=== PATIENT | male | born 1950 | race African-American/Black ===

== ENCOUNTER 2016-10-25 09:24 | Emergency (ER) | payer OTHER, MEDICARE ==
[2016-10-25 10:21] LABS: Bilirubin Negative (Negative); Blood, Urine Large (Negative); Clarity Turbid (Clear); Glucose, Urine (Dipstick) Negative (Negative); Leukocyte Large (Negative); Nitrite Negative (Negative); Protein, Urine (Dipstick) 30 mg/dL (Neg-Trace); Specific Gravity, Urine 1.015 (1.005-1.030); pH, Urine 5.5 (5.0-9.0)
[2016-10-25 10:30] LABS: Bacteria/HPF 4+ HPF (None Seen); RBC/HPF GREATER THAN 50-TNTC HPF (0-3)
--- NOTE | 2016-10-25 10:44 | ERRECORD ---
[facility] EMERGENCY RECORD HPI UTI (09:48 LLDO) CHIEF COMPLAINT: Patient presents for evaluation of urinary tract infection signs or symptoms:, dysuria, frequency, Patient presents for evaluation of and urgency x 24 hours. no d/c. never had these sx before. HISTORIAN: History provided by patient. LOCATION: Symptoms are generalized. QUALITY: Pain is dull in nature, described as BURNING. SEVERITY: Maximum severity of symptoms moderate, Currently symptoms are moderate. TIME COURSE: Sudden onset of symptoms, Symptoms are worsening, are intermittent, only with urination. ASSOCIATED WITH: No associated symptoms, some mild bilateral low back pain. no abdominal pain. EXACERBATED BY: Patient's condition exacerbated by urination. RELIEVED BY: Patient's condition relieved by nothing. ROS CONSTITUTIONAL: Negative constitutional review of systems. (09:50 LLDO) EYES: Negative eye review of systems, Historian denies eye pain, denies eye redness, denies eye discharge. (09:52 LLDO) ENT: Negative ears, nose, throat review of systems, Historian denies otalgia, denies rhinorrhea, denies sinus pain, denies sore throat. (09:52 LLDO) GENITOURINARY MALE: Historian reports dysuria, reports urinary frequency. IN HPI. (09:50 LLDO) MUSCULOSKELETAL: Negative musculoskeletal review of systems, Historian denies arthralgias, denies fall, denies injury, denies myalgias. (09:52 LLDO) NEUROLOGIC: Negative neurologic review of systems, Historian denies confusion, denies focal weakness, denies mental status changes, denies sensory changes. (09:52 LLDO) ALLERGIC/IMMUNOLOGIC: Normal allergy/immunologic system review, Historian denies eczema, denies environmental allergies, denies food allergies. (09:52 LLDO) PSYCHIATRIC: Negative psychiatric review of systems, Historian denies alcohol abuse, denies anxiety, denies depression, denies drug abuse, denies hallucinations. (09:52 LLDO) NOTES: All systems reviewed, negative except as described above. (09:50 LLDO) PAST MEDICAL HISTORY MEDICAL HISTORY: Notes: VERIFIED 10-25-16, Flu vaccine not up to date, Tetanus immunization up to date, Pneumococcal vaccine not up to date, Flu vaccine not up to date, Tetanus immunization up to date, Pneumococcal vaccine not up to date, Past medical history includes history of hypertension, which has been &a-1R&a+25V*p+0X*q8146V*c202B*c15G*c2P*p-0X&a-25V&a+1R Name: Jerry Blanco : 1950 M66 MedRec: [id number] AcctNum: [id number] Prepared: Patricia Oct 25, 2016 11:00 by Interface Page 1 of 4 pMD [facility] EMERGENCY RECORD treated, Past medical history includes history of hypertension, which has been treated. 12-20-15. (09:35 JPER) MALE SURGICAL HISTORY: Patient has no surgical history, Patient has no surgical history, Patient has no surgical history. 12-20-15. (09:35 JPER) PSYCHIATRIC HISTORY: Notes: DENIES, Notes: DENIES, No previous psychiatric history. (09:35 JPER) SOCIAL HISTORY: Patient drinks every day, less than 5 drinks per day, Patient denies drug use, Patient is a former tobacco user, Patient has no smoking history, Patient drinks every day, less than 5 drinks per day, Patient denies drug use, Patient currently uses tobacco, smokes cigarettes, daily, Patient has smoked for 30 years, Patient smokes 1/2 packs per day, Lives at home, with family, Social History includes SAYS PT SMOKES 2 PPD, Patient currently uses tobacco, Patient smokes cigarettes, Patient smokes 1/2 packs per day, Patient has smoked for 30 years, Patient drinks every day, less than 5 drinks per day, Alcohol history notes: BEER, Patient denies drug use. (09:35 JPER) NOTES: Nursing records reviewed, Agree with nursing records, Medication list reviewed. (09:52 LLDO) KNOWN ALLERGIES No Known Allergies CURRENT MEDICATIONS (09:36 JPER) Diovan: CAPSULE : Strength - 160 mg : ORAL Patient Dose: once a day. Aspir-81: TABLET, DELAYED RELEASE (ENTERIC COATED) : Strength - 81 mg : ORAL Patient Dose: Unknown. VITAL SIGNS (09:32 JPER) VITAL SIGNS: BP: 145/79, Pulse: 100, Resp: 20, Temp: 99.4 (Oral), O2 sat: 96 on Room Air, Time: 10/25/2016 09:32. PHYSICAL EXAM CONSTITUTIONAL: Vital signs reviewed, Patient afebrile, Pulse normal, Blood pressure, BP ELEVATED SLIGHTLY, Respiratory rate normal, Patient appears, uncomfortable, Patient appears in pain, in moderate pain distress, Patient alert and oriented to person, place and time. (09:51 LLDO) HEAD: Head exam normal, Head exam included findings of head atraumatic, normocephalic. (09:52 LLDO) EYES: Eye exam normal, Eye exam included findings of eyelids normal to inspection, Pupils equally round and reactive to light, Extraocular muscles intact. (09:52 LLDO) ENT: ENT exam normal, Ear exam normal, Nose exam normal. (09:52 &a-1R&a+25V*p+0X*g3388S*c202B*c15G*c2P*p-0X&a-25V&a+1R Name: Jerry Blanco : 1950 M66 MedRec: [id number] AcctNum: [id number] Prepared: Patricia Oct 25, 2016 11:00 by Interface Page 2 of 4 pMD [facility] EMERGENCY RECORD LLDO) NECK: Neck exam normal, Neck exam included findings of normal range of motion, Trachea midline, no meningeal signs, no tenderness. (09:52 LLDO) BACK: Costovertebral angle tenderness, bilaterally, but very mild pain, even with firm palpation. (09:51 LLDO) UPPER EXTREMITY: Upper extremity exam normal, Upper extremity exam included findings of inspection normal, Range of motion normal. (09:52 LLDO) LOWER EXTREMITY: Lower extremity exam normal, Lower extremity exam included findings of inspection normal, Range of motion normal. (09:52 LLDO) NEURO: Neuro exam normal, Neuro exam findings include patient oriented to person, place and time, Speech normal, Chiara coma scale 15. (09:52 LLDO) SKIN: Skin exam normal, Skin exam included findings of skin warm, dry, and normal in color, no rash. (09:52 LLDO) PSYCHIATRIC: Psychiatric exam normal, Psychiatric exam included findings of patient oriented to person place and time, Normal affect, Judgment normal. (09:52 LLDO) MEDICATION ADMINISTRATION SUMMARY Drug Name: Cipro tablet, Dose Ordered: 500 mg, Route: Oral, Status: Given, Time: 10:47 10/25/2016, Drug Name: Pyridium, Dose Ordered: 200 mg, Route: Oral, Status: Given, Time: 10:47 10/25/2016, Detailed record available in Medication Service section. PROBLEM LIST No recorded problems DIAGNOSIS (10:33 LLDO) FINAL: PRIMARY: UTI SITE NOT SPECIFIED. PRESCRIPTION (10:33 LLDO) Cipro tablet: TABLET : 500 mg : ORAL : Quantity: 1 Unit: tab(s) Route: ORAL Schedule: 2 times a day Dispense: 20 May substitute. Refills: No Refills . NOTES: No Refills. Pyridium: TABLET : 100 mg : ORAL : Quantity: 1 Unit: tab(s) Route: ORAL Schedule: every 8 hours PRN Dispense: 15 May substitute. Refills: No Refills . NOTES: ^s=No Refills No Refills. DISPOSITION PATIENT: Disposition Type: Discharge, Disposition: *Discharge Home. (10:33 LLDO) &a-1R&a+25V*p+0X*x3464Y*c202B*c15G*c2P*p-0X&a-25V&a+1R Name: Jerry Blanco : 1950 M66 MedRec: [id number] AcctNum: [id number] Prepared: Patricia Oct 25, 2016 11:00 by Interface Page 3 of 4 pMD [facility] EMERGENCY RECORD Patient left the department. (10:53 FABIÁN) Flores: FABIÁN=YAMILEX Torres, Nichelle VALENTINE=MD Bronson, Duncan &a-1R&a+25V*p+0X*a1736W*c202B*c15G*c2P*p-0X&a-25V&a+1R Name: Jerry Blanco : 1950 M66 MedRec: [id number] AcctNum: [id number] Prepared: Patricia Oct 25, 2016 11:00 by Interface Page 4 of 4 pMD [facility]
[2016-10-25] MEDS ORDERED: Ciprofloxacin 500 MG TAB ONE (10:48)
[2016-10-25] MEDS ORDERED: Phenazopyridine HCl 97.5 MG TABLET ONE (10:48)
--- NOTE | 2016-10-25 10:49 | PICIS ---
[facility] EMERGENCY RECORD TRIAGE (09:35 JPER) PATIENT: NAME: Jerry Blanco, AGE: 66, GENDER: male, : Jose 1950, TIME OF GREET: Sun Oct 25, 2016 09:25, PREFERRED LANGUAGE: Scottish, RACE: Black or , ETHNICITY: Not or , FALL RISK: NO, ECODE BILLING MAP: [facility], SSN: [id number], Zip Code: [address], KG WEIGHT: 95.25, PHONE: , , , PERSON ID: [id number], PCP: DO Ervin Hillary. (09:35 JPER) COMPLAINT: BURNING WHILE URINATING. (09:35 JPER) ADMISSION: URGENCY: 4 Non Urgent, ADMISSION SOURCE: Home, TRANSPORT: Walk-in, BED: ED -02. (09:35 JPER) ASSESSMENT: Assessment: PT C/O FREQUENT URINATION ONSET 1830 LAST NIGHT. (09:35 JPER) IMMUNIZATIONS: Flu vaccine up to date, Tetanus not up to date, Pneumococcal vaccine up to date. (09:35 JPER) SIRS SCORING: Heart Rate 55-109 (0), Temp range 96.8-101.1 (0), respiratory rate 12-24 (0), Mental Status altered: no (0). (09:35 JPER) TRIAGE SCREENING: Patient denies suicidal ideation, Patient denies presence of domestic violence. (09:35 JPER) PROVIDERS: TRIAGE NURSE: Nichelle Torres RN. (09:35 JPER) VITAL SIGNS: BP 145/79, Pulse 100, Resp 20, Temp 99.4, (Oral), O2 Sat 96, on Room Air, Time 10/25/2016 09:32. (09:32 JPER) PREVIOUS VISIT ALLERGIES: No Known Allergies. (09:35 JPER) KNOWN ALLERGIES No Known Allergies CURRENT MEDICATIONS (09:36 JPER) Diovan: CAPSULE : Strength - 160 mg : ORAL Patient Dose: once a day. Aspir-81: TABLET, DELAYED RELEASE (ENTERIC COATED) : Strength - 81 mg : ORAL Patient Dose: Unknown. VITAL SIGNS (09:32 JPER) VITAL SIGNS: BP: 145/79, Pulse: 100, Resp: 20, Temp: 99.4 (Oral), O2 sat: 96 on Room Air, Time: 10/25/2016 09:32. NURSING ASSESSMENT: GENITOURINARY (09:38 FABIÁN) CONSTITUTIONAL: Patient arrives ambulatory, Gait steady, History obtained from patient, Patient appears comfortable, Patient cooperative, Patient alert, Oriented to person, place and time, Skin warm, Skin dry, Skin normal in color, Mucous membranes pink, Mucous membranes moist, Patient is well-groomed, Patient complains of DYSURIA. PAIN MALE: burning pain, to the shaft of penis, to the suprapubic region, WITH &a-1R&a+25V*p+0X*i8021L*c202B*c15G*c2P*p-0X&a-25V&a+1R Name: Jerry Blanco : 1950 M66 MedRec: [id number] AcctNum: [id number] Prepared: Patricia Oct 25, 2016 11:07 by Interface Page 1 of 5 pMD [facility] EMERGENCY RECORD URINATION, Pain exacerbated by nothing, Nothing has been tried to alleviate the pain. GENITOURINARY MALE: Notes: DEFERRED; UA REQUESTED. ABDOMEN: Abdomen soft. NOTES: Emotional support needed and given, Patient tolerated procedure well. ORDER DETAILS Order Name: Urinalysis w/ Rflx Microscopic, Status: Active, Time: 09:52 10/25/2016, User: FABIÁN, - Ordered for: MD Dobson Lloyd, - Entered by: YAMILEX Torres Jana - Patricia Oct 25, 2016 09:52, - Quantity: 1. MEDICATION ADMINISTRATION SUMMARY Drug Name: Cipro tablet, Dose Ordered: 500 mg, Route: Oral, Status: Given, Time: 10:47 10/25/2016, Drug Name: Pyridium, Dose Ordered: 200 mg, Route: Oral, Status: Given, Time: 10:47 10/25/2016, Detailed record available in Medication Service section. MEDICATION SERVICE (10:47 LLDO) Cipro tablet: Order: Cipro tablet (ciprofloxacin HCl) - Dose: 500 mg : Oral Schedule: Now Ordered by: Duncan Dobson MD Entered by: MD Patricia Pate Oct 25, 2016 10:35 Documented as given by: YAMILEX Guevara Oct 25, 2016 10:47 Patient, Medication, Dose, Route and Time verified prior to administration. Amount given: 500MG, Site: Medication administered P.O., Administered by RUPESH KAMINSKI. Pyridium: Order: Pyridium (phenazopyridine HCl) - Dose: 200 mg : Oral Schedule: Now Ordered by: Duncan Dobson MD Entered by: MD Patricia Pate Oct 25, 2016 10:36 Documented as given by: YAMILEX Guevara Oct 25, 2016 10:47 Patient, Medication, Dose, Route and Time verified prior to administration. Amount given: 200MG, Site: Medication administered P.O., Correct patient, time, route, dose and medication confirmed prior to administration, Patient advised of actions and side-effects prior to administration, Allergies confirmed and medications reviewed prior to administration, Administered by RUPESH KAMINSKI. HPI UTI (09:48 LLDO) CHIEF COMPLAINT: Patient presents for evaluation of urinary &a-1R&a+25V*p+0X*u4853S*c202B*c15G*c2P*p-0X&a-25V&a+1R Name: Jerry Blanco : 1950 M66 MedRec: [id number] AcctNum: [id number] Prepared: Patricia Oct 25, 2016 11:07 by Interface Page 2 of 5 pMD [facility] EMERGENCY RECORD tract infection signs or symptoms:, dysuria, frequency, Patient presents for evaluation of and urgency x 24 hours. no d/c. never had these sx before. HISTORIAN: History provided by patient. LOCATION: Symptoms are generalized. QUALITY: Pain is dull in nature, described as BURNING. SEVERITY: Maximum severity of symptoms moderate, Currently symptoms are moderate. TIME COURSE: Sudden onset of symptoms, Symptoms are worsening, are intermittent, only with urination. ASSOCIATED WITH: No associated symptoms, some mild bilateral low back pain. no abdominal pain. EXACERBATED BY: Patient's condition exacerbated by urination. RELIEVED BY: Patient's condition relieved by nothing. ROS CONSTITUTIONAL: Negative constitutional review of systems. (09:50 LLDO) EYES: Negative eye review of systems, Historian denies eye pain, denies eye redness, denies eye discharge. (09:52 LLDO) ENT: Negative ears, nose, throat review of systems, Historian denies otalgia, denies rhinorrhea, denies sinus pain, denies sore throat. (09:52 LLDO) GENITOURINARY MALE: Historian reports dysuria, reports urinary frequency. IN HPI. (09:50 LLDO) MUSCULOSKELETAL: Negative musculoskeletal review of systems, Historian denies arthralgias, denies fall, denies injury, denies myalgias. (09:52 LLDO) NEUROLOGIC: Negative neurologic review of systems, Historian denies confusion, denies focal weakness, denies mental status changes, denies sensory changes. (09:52 LLDO) ALLERGIC/IMMUNOLOGIC: Normal allergy/immunologic system review, Historian denies eczema, denies environmental allergies, denies food allergies. (09:52 LLDO) PSYCHIATRIC: Negative psychiatric review of systems, Historian denies alcohol abuse, denies anxiety, denies depression, denies drug abuse, denies hallucinations. (09:52 LLDO) NOTES: All systems reviewed, negative except as described above. (09:50 LLDO) PAST MEDICAL HISTORY MEDICAL HISTORY: Notes: VERIFIED 10-25-16, Flu vaccine not up to date, Tetanus immunization up to date, Pneumococcal vaccine not up to date, Flu vaccine not up to date, Tetanus immunization up to date, Pneumococcal vaccine not up to date, Past medical history includes history of hypertension, which has been treated, Past medical history includes history of hypertension, which has been treated. 12-20-15. (09:35 JPER) &a-1R&a+25V*p+0X*h5470K*c202B*c15G*c2P*p-0X&a-25V&a+1R Name: Jerry Blanco : 1950 M66 MedRec: [id number] AcctNum: [id number] Prepared: Patricia Oct 25, 2016 11:07 by Interface Page 3 of 5 pMD [facility] EMERGENCY RECORD MALE SURGICAL HISTORY: Patient has no surgical history, Patient has no surgical history, Patient has no surgical history. 12-20-15. (09:35 JPER) PSYCHIATRIC HISTORY: Notes: DENIES, Notes: DENIES, No previous psychiatric history. (09:35 JPER) SOCIAL HISTORY: Patient drinks every day, less than 5 drinks per day, Patient denies drug use, Patient is a former tobacco user, Patient has no smoking history, Patient drinks every day, less than 5 drinks per day, Patient denies drug use, Patient currently uses tobacco, smokes cigarettes, daily, Patient has smoked for 30 years, Patient smokes 1/2 packs per day, Lives at home, with family, Social History includes SAYS PT SMOKES 2 PPD, Patient currently uses tobacco, Patient smokes cigarettes, Patient smokes 1/2 packs per day, Patient has smoked for 30 years, Patient drinks every day, less than 5 drinks per day, Alcohol history notes: BEER, Patient denies drug use. (09:35 JPER) NOTES: Nursing records reviewed, Agree with nursing records, Medication list reviewed. (09:52 LLDO) PHYSICAL EXAM CONSTITUTIONAL: Vital signs reviewed, Patient afebrile, Pulse normal, Blood pressure, BP ELEVATED SLIGHTLY, Respiratory rate normal, Patient appears, uncomfortable, Patient appears in pain, in moderate pain distress, Patient alert and oriented to person, place and time. (09:51 LLDO) HEAD: Head exam normal, Head exam included findings of head atraumatic, normocephalic. (09:52 LLDO) EYES: Eye exam normal, Eye exam included findings of eyelids normal to inspection, Pupils equally round and reactive to light, Extraocular muscles intact. (09:52 LLDO) ENT: ENT exam normal, Ear exam normal, Nose exam normal. (09:52 LLDO) NECK: Neck exam normal, Neck exam included findings of normal range of motion, Trachea midline, no meningeal signs, no tenderness. (09:52 LLDO) BACK: Costovertebral angle tenderness, bilaterally, but very mild pain, even with firm palpation. (09:51 LLDO) UPPER EXTREMITY: Upper extremity exam normal, Upper extremity exam included findings of inspection normal, Range of motion normal. (09:52 LLDO) LOWER EXTREMITY: Lower extremity exam normal, Lower extremity exam included findings of inspection normal, Range of motion normal. (09:52 LLDO) NEURO: Neuro exam normal, Neuro exam findings include patient oriented to person, place and time, Speech normal, [place] coma scale 15. (09:52 LLDO) SKIN: Skin exam normal, Skin exam included findings of skin warm, &a-1R&a+25V*p+0X*v7683X*c202B*c15G*c2P*p-0X&a-25V&a+1R Name: Jerry Blanco : 1950 M66 MedRec: [id number] AcctNum: [id number] Prepared: Patricia Oct 25, 2016 11:07 by Interface Page 4 of 5 pMD [facility] EMERGENCY RECORD dry, and normal in color, no rash. (09:52 LLDO) PSYCHIATRIC: Psychiatric exam normal, Psychiatric exam included findings of patient oriented to person place and time, Normal affect, Judgment normal. (09:52 LLDO) EVENTS TRANSFER: Triage to Emergency Main ED -02. (Patricia Oct 25, 2016 09:35 JPER) Emergency Main ED -02 to -H01. (10:49 AWAT) Removed from Emergency Main ED -H01. (10:53 JPER) PROBLEM LIST No recorded problems DIAGNOSIS (10:33 LLDO) FINAL: PRIMARY: UTI SITE NOT SPECIFIED. DISPOSITION PATIENT: Disposition Type: Discharge, Disposition: *Discharge Home. (10:33 LLDO) Patient left the department. (10:53 JPER) INSTRUCTION (10:35 LLDO) DISCHARGE: UTI CYSTITIS MALE ADULT. FOLLOWUP: DO Ervin Hillary, [facility], [address] [place] [address], , Follow up with Primary Care Physician as needed. SPECIAL: Follow-up with your PCP. PRESCRIPTION (10:33 LLDO) Cipro tablet: TABLET : 500 mg : ORAL : Quantity: 1 Unit: tab(s) Route: ORAL Schedule: 2 times a day Dispense: 20 May substitute. Refills: No Refills . NOTES: No Refills. Pyridium: TABLET : 100 mg : ORAL : Quantity: 1 Unit: tab(s) Route: ORAL Schedule: every 8 hours PRN Dispense: 15 May substitute. Refills: No Refills . NOTES: ^s=No Refills No Refills. ADMIN (10:37 LLDO) DIGITAL SIGNATURE: MD Dobson Lloyd. Flores: AWAHelen=YAMILEX Blankenship, Gelacio LOCKWOOD=YAMILEX Torres, Nichelle MEME=MD Bronson, Duncan &a-1R&a+25V*p+0X*q9410J*c202B*c15G*c2P*p-0X&a-25V&a+1R Name: Jerry Blanco : 1950 M66 MedRec: [id number] AcctNum: [id number] Prepared: Patricia Oct 25, 2016 11:07 by Interface Page 5 of 5 pMD [facility] MEDICATION RECONCILIATION You were seen in the Emergency Department on: WedOct 25, 2016 KNOWN ALLERGIES No Known Allergies MEDICATIONS GIVEN WHILE IN THE EMERGENCY DEPARTMENT Cipro tablet (ciprofloxacin HCl) - Dose: 500 milligram(s) : Oral Pyridium (phenazopyridine HCl) - Dose: 200 milligram(s) : Oral HOME MEDICATIONS CONTINUE PRESCRIBED Aspir-81 : TABLET, DELAYED RELEASE (ENTERIC COATED) : Strength - 81 mg : ORAL Continue as prescribed Patient had been taking: Dose unknown Diovan : CAPSULE : Strength - 160 mg : ORAL Continue as prescribed Patient had been taking: once a day. Notes from the emergency department Reviewed with patient PRESCRIPTIONS (2) Printed (2) Cipro tablet : TABLET : 500 mg : ORAL Quantity: 1, Unit: tab(s), Route: ORAL, Schedule: 2 times a day, Dispense: 20 &a-1R&a+25V*p+0X*t1349W*c202B*c15G*c2P*p-0X&a-25V&a+1R Name: Jerry Blanco : 1950 M66 MedRec: [id number] AcctNum: [id number] Prepared: Patricia Oct 25, 2016 11:07 by Interface pMD [place]
== END 2016-10-25 10:55 | disposition home or self-care (01) ==
LOC: MADERS 09:24
DX: N39.0 Urinary tract infection, site not specified (principal); I10 Essential (primary) hypertension; F17.210 Nicotine dependence, cigarettes, uncomplicated
CPT/HCPCS: 81003; 81015; 87077; 87086; 87186; 99283

== ENCOUNTER 2017-06-22 11:16 | Outpatient (CLI) | payer OTHER, MEDICARE ==
[2017-06-22 11:56] LABS: #Basophils 0.1 thou/uL (0.0-0.2); #Lymphocytes 2.3 thou/uL (1.20-3.40); #Monocytes 0.7 thou/uL (0.11-0.59); #Neutrophils 2.1 thou/uL (1.40-6.50); %Basophils 1.4 % (0.0-1.0); %Eosinophils 0.8 % (0.0-10.0); %Lymphocytes 43.9 % (21.0-51.0); %Monocytes 12.9 % (0.0-10.0); Hemoglobin 15.7 g/dL (14.0-18.0); Mean Corpuscular HGB CONC 29.3 g/dL (32.0-36.0); Mean Corpuscular Hemoglobin 23.5 pg (27.0-31.0); Mean Corpuscular Volume 80.3 fl (80.0-94.0); Platelet Count 193 thou/uL (130-400); RBC Distribution Width 14.4 % (11.5-14.5); Red Blood Cell (RBC) Count 6.67 mill/uL (4.70-6.10); White Blood Cell (WBC) Count 5.2 thou/uL (4.8-10.8)
[2017-06-22 11:57] LABS: Manual Diff?? NO
[2017-06-22 12:21] LABS: ALT (SGPT) 17 U/L (8-55); AST (SGOT) 23 U/L (5-34); Albumin 4.4 g/dL (3.4-4.8); Alkaline Phosphatase 44 U/L (40-150); Anion Gap 13 mmol/L (10-20); BUN (Urea Nitrogen) 14 mg/dL (8.4-25.7); Bilirubin, Total 0.8 mg/dL (0.2-1.2); Calc. Creatinine Clearance 0 mL/min (70-130); Calcium 9.7 mg/dL (7.8-10.44); Carbon Dioxide 24 mmol/L (23-31); Cardiac Risk 3.8 (Less than 4.5); Chloride 105 mmol/L (98-107); Cholesterol 209 mg/dl (< 200 Desired); Estimated GFR-MDRD 86; Globulin 4.2 g/dL (2.4-3.5); Glucose 101 mg/dL (80-115); HDL Cholesterol 55 mg/dL (>60 Neg Risk); LDL Cholesterol, Calculated 137 mg/dL; Potassium 4.5 mmol/L (3.5-5.1); Protein, Total 8.6 g/dL (5.8-8.1); Sodium 137 mmol/L (136-145); Triglycerides 84 mg/dL (Less than 150)
[2017-06-22 13:21] LABS: Bilirubin Negative (Negative); Blood, Urine Negative (Negative); Clarity Clear (Clear); Glucose, Urine (Dipstick) Negative (Negative); Leukocyte Negative (Negative); Nitrite Negative (Negative); Protein, Urine (Dipstick) Negative (Neg-Trace); Urobilinogen 0.2 mg/dL (0.2-1.0)
[2017-06-22 13:29] LABS: Bacteria/HPF Rare-Few HPF (None Seen); RBC/HPF 0-3 HPF (0-3); Squamous Epithelial 0-3 HPF (0-3); WBC/HPF None Seen HPF (0-3)
[2017-06-24 08:24] LABS: % Free PSA 11.1 % (.); Total PSA 0.9 ng/mL (0.0-4.0)
== END 2017-06-22 11:17 | disposition home or self-care (01) ==
LOC: MADLABBHPM 11:16
PROVIDERS: ATTEND Family Medicine
DX: Z00.00 Encounter for general adult medical examination without abnormal findings (principal)
CPT/HCPCS: 36415; 80053; 80061; 81001; 84153; 84154; 84443; 85025

== ENCOUNTER 2017-08-18 15:29 | Outpatient (CLI) | payer OTHER, MEDICARE ==
--- NOTE | 2017-08-18 17:15 | RAD ---
LEFT SHOULDER THREE VIEWS 08/18/17 INDICATION: Left shoulder pain, acute. COMPARISON: 07/12/14. FINDINGS: There is moderate left AC joint osteoarthritis. No fracture or dislocation. IMPRESSION: 1. No acute fracture. 2. Moderate osteoarthritis. POS: [facility]
== END 2017-08-18 15:30 | disposition home or self-care (01) ==
LOC: MADRAD 15:29
PROVIDERS: ATTEND Family Medicine
DX: M25.512 Pain in left shoulder (principal); M19.012 Primary osteoarthritis, left shoulder

== ENCOUNTER 2017-12-11 04:48 | Emergency (ER) | payer OTHER, MEDICARE ==
[2017-12-11] MEDS ORDERED: MORPHINE 10 MG/ML SYRINGE ONE (05:34)
[2017-12-11 05:54] LABS: #Basophils 0.1 thou/uL (0.0-0.2); #Eosinphils 0.1 thou/uL (0.0-0.7); #Lymphocytes 2.1 thou/uL (1.20-3.40); #Monocytes 0.7 thou/uL (0.11-0.59); #Neutrophils 1.7 thou/uL (1.40-6.50); %Eosinophils 1.7 % (0.0-10.0); %Lymphocytes 45.7 % (21.0-51.0); %Monocytes 14.4 % (0.0-10.0); %Neutrophils 36.3 % (42.0-75.0); Anion Gap 15 mmol/L (10-20); BUN (Urea Nitrogen) 11 mg/dL (8.4-25.7); Calc. Creatinine Clearance 0 mL/min (70-130); Calcium 9.2 mg/dL (7.8-10.44); Carbon Dioxide 22 mmol/L (23-31); Chloride 105 mmol/L (98-107); Estimated GFR-MDRD 90; Glucose 133 mg/dL (80-115); Hemoglobin 14.8 g/dL (14.0-18.0); Mean Corpuscular HGB CONC 30.3 g/dL (32.0-36.0); Mean Corpuscular Hemoglobin 24.6 pg (27.0-31.0); Mean Corpuscular Volume 81.2 fl (80.0-94.0); Platelet Count 187 thou/uL (130-400); Potassium 4.4 mmol/L (3.5-5.1); RBC Distribution Width 14.2 % (11.5-14.5); Sodium 138 mmol/L (136-145); White Blood Cell (WBC) Count 4.5 thou/uL (4.8-10.8)
[2017-12-11 06:02] LABS: CKMB 2.5 ng/mL (0-6.6); Troponin I Less than 0.010 ng/mL (< 0.028)
--- NOTE | 2017-12-11 10:27 | RAD ---
PORTABLE CHEST: Date: 12/11/17 HISTORY: Chest pain. FINDINGS: Heart size is borderline for portable technique. Mediastinal structures are unremarkable. Lungs are c lear of infiltrates. IMPRESSION: No active intrathoracic disease. POS: [facility]
== END 2017-12-11 06:39 | disposition home or self-care (01) ==
LOC: MADERS 04:48
DX: R07.89 Other chest pain (principal); I10 Essential (primary) hypertension; F17.210 Nicotine dependence, cigarettes, uncomplicated; Z79.899 Other long term (current) drug therapy
CPT/HCPCS: 36415; 71045; 80048; 82553; 83880; 84484; 85025; 93005; 96374; J2270

== ENCOUNTER 2020-05-19 14:31 | Emergency (ER) | payer OTHER, MEDICARE ==
[2020-05-19] MEDS ORDERED: Acetaminophen 500 MG TAB ONE (15:25)
[2020-05-21 13:04] LABS: SARS-CoV-2 MS2 Positive; SARS-CoV-2 N Gene Negative; SARS-CoV-2 S Gene Negative; SARS-CoV-2 by NAA Not Detected (NotDetected); SARS-CoV-2 orf1ab Negative
== END 2020-05-19 15:30 | disposition home or self-care (01) ==
LOC: MADERS 14:31
DX: R50.9 Fever, unspecified (principal); Z20.828 Contact with and (suspected) exposure to other viral communicable diseases; I10 Essential (primary) hypertension; F17.210 Nicotine dependence, cigarettes, uncomplicated; Z79.82 Long term (current) use of aspirin
CPT/HCPCS: 87635; 99283; U0003

== ENCOUNTER 2021-06-16 15:25 | Outpatient (CLI) | payer OTHER, MEDICARE | END 2021-06-16 15:26 | disposition home or self-care (01) | LOC: MADLAB 15:25 → MADRAD 15:26 | PROVIDERS: ATTEND Family Medicine | DX: R05 Cough (principal); R06.02 Shortness of breath | CPT/HCPCS: 71046 ==

== ENCOUNTER 2021-07-04 13:42 | Outpatient (CLI) | payer OTHER, MEDICARE | END 2021-07-04 13:43 | disposition home or self-care (01) | LOC: MADRAD 13:42 | PROVIDERS: ATTEND Family Medicine | DX: R55 Syncope and collapse (principal); R06.00 Dyspnea, unspecified | CPT/HCPCS: 71046 ==

== ENCOUNTER 2022-03-14 07:44 | Outpatient (CLI) | payer OTHER, MEDICARE ==
[2022-03-14 08:35] LABS: Anion Gap 18 mmol/L (10-20); BUN (Urea Nitrogen) 14 mg/dL (8.4-25.7); Calc. Creatinine Clearance 0 mL/min (70-130); Calcium 10.1 mg/dL (7.8-10.44); Carbon Dioxide 22 mmol/L (23-31); Chloride 100 mmol/L (98-107); Glucose 109 mg/dL (83-110); Potassium 4.7 mmol/L (3.5-5.1); Sodium 135 mmol/L (136-145)
== END 2022-03-14 07:45 | disposition home or self-care (01) ==
LOC: MADLAB 07:44
PROVIDERS: ATTEND Family Medicine
DX: R60.0 Localized edema (principal)
CPT/HCPCS: 36415; 80048

== ENCOUNTER 2022-09-19 08:28 | Outpatient (CLI) | payer OTHER, MEDICARE ==
[2022-09-20 04:40] LABS: Follow-up Chemistry Comp? YES; Follow-up Result - Chemistry REPORT FAXED
== END 2022-09-19 08:29 | disposition home or self-care (01) ==
LOC: MADLAB 08:28
PROVIDERS: ATTEND Family Medicine
DX: N52.9 Male erectile dysfunction, unspecified (principal)
CPT/HCPCS: 36415; 84403

== ENCOUNTER 2024-05-06 01:54 | Emergency (ER) | payer OTHER, MEDICARE ==
[2024-05-06] MEDS ORDERED: Boostrix 0.5 ML (Tdap) VIAL (>/=7 yrs of age) ONE (02:02)
[2024-05-06] MEDS ORDERED: Sulfameth/Trimethoprim DS 800-160mg TAB ONE (02:19)
[2024-05-06] MEDS ORDERED: Naproxen 500 MG TAB ONE (02:19)
== END 2024-05-06 02:35 | disposition home or self-care (01) ==
LOC: MADERS 01:54
DX: S91.332A Puncture wound without foreign body, left foot, initial encounter (principal); I10 Essential (primary) hypertension; E11.9 Type 2 diabetes mellitus without complications; W45.0XXA Nail entering through skin, initial encounter; Y93.01 Activity, walking, marching and hiking; Z87.891 Personal history of nicotine dependence
CPT/HCPCS: 90471; 90715

== ENCOUNTER 2024-07-20 20:17 | Emergency (ER) | payer OTHER, MEDICARE ==
[2024-07-20] MEDS ORDERED: Ketorolac Tromethamine 30 MG (1 mL) VIAL ONE (21:18)
== END 2024-07-20 21:49 | disposition home or self-care (01) ==
LOC: MADERS 20:17
DX: S20.221A Contusion of right back wall of thorax, initial encounter (principal); E11.9 Type 2 diabetes mellitus without complications; I10 Essential (primary) hypertension; W18.30XA Fall on same level, unspecified, initial encounter; Z87.891 Personal history of nicotine dependence; Z55.6 Problems related to health literacy
CPT/HCPCS: 71046; 72100; 96372; J1885